=== PATIENT | female | born 1955 | race African-American/Black ===

== ENCOUNTER 2024-12-20 22:03 | Emergency (ER) | payer OTHER, SELFPAY ==
[2024-12-20] VITALS (15 sets, daily range): BP systolic 137; BP diastolic 84; PULSE 106–108; TEMP 36.9; O2SAT 91–99; BMI 28.7
--- NOTE | 2024-12-20 22:54 | ED_ITS ---
HPI HPI - General Adult General Chief complaint: Shortness of Breath/Dyspnea Stated complaint: SOB WEAKNESS Time Seen by Provider: 12/20/24 22:31 Source: patient and family Mode of arrival: Wheelchair History of Present Illness HPI narrative: This 69-year-old female who was diagnosed with hepatocellular carcinoma in 2020 and also gets monthly or bimonthly pleurocentesis at [facility] for right sided pleural effusions and who has been on chemotherapy and recently started immunotherapy but missed the last 3 treatments due to her labs is brought to the emergency department by her son's girlfriend for evaluation of generalized weakness, increasing shortness of breath and pain mostly in her back. She had a CT scan done earlier this month that showed increasing size of the masses in her liver as well as multiple masses in her liver that have been seen in the past and a questionable metastatic nodule in her left lung as well as a large right sided pleural effusion with compressive atelectasis. The patient's son's girlfriend states that she has recently decided to move her in with them because of her generalized weakness and poor appetite. The patient has been having diarrhea which she describes as mucoid in nature. This apparently is not new as I was able to see discussion of this on her MyChart from [facility]. She has not had a fever. She has been using a fentanyl patch and oxycodone that has been prescribed to her on a bimonthly basis but the pain is breaking through at this time. She does remain a full code. She has been worsening over the past 3 days and has been stating that she feels like she is dying. Related Data Home Medications ?Medication ?Instructions ?Recorded ?Confirmed albuterol sulfate 90 mcg/actuation inhalation 12/20/24 aerosol inhaler alprazolam 0.5 mg tablet (Xanax) 0.5 mg PO DAILY 12/20/24 12/20/24 ciprofloxacin 500 mg/5 mL oral 500 mg PO BID 12/20/24 12/20/24 suspension furosemide 40 mg tablet mg 12/20/24 guaifenesin 100 mg/5 mL oral liquid mg 12/20/24 hydroxyzine HCl 25 mg tablet mg 12/20/24 olanzapine 5 mg tablet (Zyprexa) 5 mg PO DAILY 12/20/24 12/20/24 ondansetron 8 mg disintegrating 8 mg PO Q8H 12/20/24 12/20/24 tablet oxycodone 5 mg tablet mg 12/20/24 potassium chloride 20 mEq meq PO 12/20/24 tablet,extended release(part/cryst) sennosides 8.6 mg capsule (senna) 8.6 mg PO BID 12/20/24 12/20/24 spironolactone 100 mg tablet mg 12/20/24 therapeutic multivitamin tab 12/20/24 (Thera-Tabs tablet) Allergies Allergy/AdvReac Type Severity Reaction Status Date / Time acetaminophen Allergy Intermediate Hives Verified 12/20/24 22:27 cyclobenzaprine Allergy Intermediate Swelling Verified 12/20/24 22:27 of Lip/Tongue/Throat gabapentin Allergy Intermediate Hives Verified 12/20/24 22:27 ibuprofen Allergy Intermediate Rash Verified 12/20/24 22:27 iodine Allergy Intermediate Hives Verified 12/20/24 22:27 lidocaine Allergy Intermediate hives Verified 12/20/24 22:27 Penicillins Allergy Intermediate Rash Verified 12/20/24 22:27 rifaximin Allergy Intermediate Swelling Verified 12/20/24 22:27 of Lip/Tongue/Throat tramadol Allergy Intermediate hives Verified 12/20/24 22:27 eggs Allergy Intermediate Hives Uncoded 12/20/24 22:27 Opioid HPI Opioid Management Most Recent Opioid Data: Last Pain Scale 9 12/21/24 00:25 12/21/24 Last DEC Pain Assessment 12/21/24 00:25 Review of Systems ROS Status of ROS 10 or more systems reviewed and unremark able except as noted in history and below PFSH PFSH Social History Little interest or pleasure in doing things: not at all Feeling down, depressed, or hopeless: not at all Exam Narrative Exam Narrative: Vital signs and Nursing Notes reviewed: Patient is afebrile with normal blood pressure, pulse is mildly elevated at 106, she is oxygen dependent and her pulse ox was 97% on 2 L General: Awake, alert, oriented, chronically ill-appearing -[place] female, GCS 15, no respiratory distress HEENT: Normocephalic atraumatic, mucous membranes are moist and pink, eyes are clear, normal conjunctiva, vision is grossly intact, posterior pharynx is normal in appearance. Neck: Supple, +JVD Chest: Diminished breath sounds on the right lung, no rhonchi or rales appreciated, occasional wheeze noted in the left upper lobe CVS: Regular rate and rhythm S1-S2, no murmurs rubs or gallops, pulses are brisk and equal bilaterally ABD: Distended with a fluid wave, nontender Extremities: Moving all extremities, no lower extremity tenderness or swelling noted, negative Homans' sign, pulses are brisk and equal bilaterally Skin: Normal in appearance without rash,pallor, petechiae or purpura Neuro: No focal deficits Constitutional Vital Signs, click to edit/add: Last Vital Signs Temp 98.4 F 12/20/24 22:12 Pulse 112 H 12/21/24 00:10 Resp 18 12/21/24 00:10 BP 137/84 12/20/24 22:14 Pulse Ox 99 12/21/24 00:10 O2 Del Method Nasal Cannula 12/20/24 23:43 O2 Flow Rate 2 12/20/24 23:43 Course Vital Signs Vital signs: Vital Signs Temperature 98.4 F 12/20/24 22:12 Pulse Rate 106 H 12/20/24 22:12 Respiratory Rate 20 12/20/24 22:12 Blood Pressure 137/84 12/20/24 22:12 Pulse Oximetry 97 12/20/24 22:12 Oxygen Delivery Method Nasal Cannula 12/20/24 22:12 Oxygen Delivery Flow Rate 2 12/20/24 22:12 Temperature 98.4 F 12/20/24 22:12 Pulse Rate 112 H 12/21/24 00:10 Respiratory Rate 18 12/21/24 00:10 Blood Pressure 137/84 12/20/24 22:14 Pulse Oximetry 99 12/21/24 00:10 Oxygen Delivery Method Nasal Cannula 12/20/24 23:43 Oxygen Delivery Flow Rate 2 12/20/24 23:43 Medical Decision Making MDM Narrative Medical decision making narrative: This 69-year-old female with a history of stage IV liver cancer and cirrhosis who has right sided pleural effusion that requires pleurocentesis is brought the emergency department by her family for evaluation of abdominal pain and back pain, diarrhea, generalized weakness. She has been staying locally with her son and his girlfriend because she has been declining over the course of the last several days with increased somnolence, complaining of abdominal pain, mucoid diarrhea and stating that she felt like she was dying. I was able to review her CT scan from earlier this month that showed increase in the size of her liver lesions, a nodule on her left lung that was thought to possibly be metastatic disease and large pleural effusion with moderate ascites. I was also able to review the patient's labs from the [facility]. Her WBC count and hemoglobin are stable. Her platelet count is higher today at 73 than it was earlier this month at 66. The patient has a total bilirubin today of 1.3 which is unchanged since December 09. Her AST is 130 today, it was 113 at that time. Her ALT is 163 today it was 113 at that time, alkaline phosphate tase is 118 today it was 107 at that time. Ammonia is 93 today and was 59 at that time. Her electrolytes are otherwise essentially unchanged. Her troponin and EKG today are normal. Urine is negative for infection. X-ray of the chest and abdomen was ordered due to her complaint of shortness of breath. The x-ray shows a large pleural effusion with compressive atelectasis and a nonspecific bowel gas pattern with a moderate amount of stool. She was medicated with 2 doses of Dilaudid for her ongoing pain. She was given 30 mg of lactulose. According to the patient's daughter with whom she has been staying she is supposed to be taking the lactulose on a daily basis but the patient's son and his girlfriend who are currently taking care of her were unaware that she was supposed to be taking this. I had a lengthy discussion with the patient's son and his girlfriend while the patient was getting an x-ray. I explained to them that her diagnosis is somewhat terminal. There is little that can be done for many of the findings on her CAT scan and the treatment is symptomatic. I suggested that they consult palliative care and/or hospice just for a discussion. The patient is still a full code. Family verbalizes understanding that she will not be admitted to this facility at this time. Her daughter intends to call [facility] to get her scheduled to have the pleural effusion tapped at [facility]. She is receiving oxycodone for her pain control which was verified by [facility]. The family had several questions about her ongoing medications. I encouraged them to discuss them with her [facility] providers as I am not in a position to make medication adjustments for her besides suggesting that she take her lactulose twice a day and providing her with a prescription for this. Medical Records Medical records reviewed: Yes I reviewed the patient's medical records Medical records narrative: CT scans and labs from patient's [facility] were reviewed Lab Data Lab results reviewed: Yes I reviewed the patient's lab results Labs: Lab Results 12/20/24 12/21/24 Range/Units 22:40 01:10 WBC 5.0 (4.0-11.0) 10^3/uL RBC 4.01 L (4.20-5.40) 10^6/uL Hgb 12.0 (12.0-16.0) g/dL Hct 37.2 (36.0-48.0) % MCV 92.8 (81.0-99.0) fL MCH 29.9 (26.7-34.0) pg MCHC 32.3 (29.9-35.2) g/dL RDW 15.0 (11.0-15.0) % Plt Count 73 L (150-450) 10^3/uL MPV 10.2 (9.5-13.5) fL Neut % (Auto) 68.3 (43.0-75.0) % Lymph % (Auto) 11.2 L (20.5-60.0) % [place] % (Auto) 15.1 H (1.7-12.0) % Eos % (Auto) 4.8 (0.9-7.0) % Baso % (Auto) 0.2 (0.2-2.0) % Neut # (Auto) 3.4 (1.4-6.5) 10^3/uL Lymph # (Auto) 0.6 L (1.2-3.8) 10^3/uL [place] # (Auto) 0.8 (0.3-0.8) 10^3/uL Eos # (Auto) 0.2 (0.0-0.7) 10^3/uL Baso # (Auto) 0.0 (0.0-0.1) 10^3/uL Abs Immat Gran (auto) 0.02 (0.00-0.03) 10^3/uL Imm/Tot Granulo (auto) 0.4 (0.0-0.5) % Sodium 138 (136-145) mmol/L Potassium 3.4 L (3.5-5.1) mmol/L Chloride 109 H (98-107) mmol/L Carbon Dioxide 25.5 (21.0-32.0) mmol/L Anion Gap 6.9 BUN 6.0 L (7.0-18.0) mg/dL Creatinine 0.79 (0.55-1.02) mg/dL Est GFR ( Amer) >60 (>=60 mL/min/1.73m^2) Est GFR (Non-Af Amer) >60 (>=60 mL/min/1.73m^2) BUN/Creatinine Ratio 7.6 Glucose 96 (74-106) mg/dL Lactate 1.6 (0.4-2.0) mmol/L Calcium 7.6 L (8.5-10.1) mg/dL Total Bilirubin 1.3 H (0.2-1.0) mg/dL AST 130 H (15-37) U/L ALT 163 H (14-59) U/L Alkaline Phosphatase 118 H (46-116) U/L Ammonia 93 H* (11-32) umol/L Troponin I High Sens 6.8 (4.0-51.3) pg/mL NT-Pro-B Natriuret Pep 47.0 (<=900.0) pg/mL Total Protein 6.1 L (6.4-8.2) g/dL Albumin 1.7 L (3.4-5.0) g/dL Globulin 4.4 g/dL Albumin/Globulin Ratio 0.4 Urine Color Dk. yellow (YELLOW) Urine Clarity Clear (CLEAR) Urine pH 6.0 (5.0-9.0) Ur Specific [place] 1.020 (1.005-1.025) Urine Protein Trace (NEG/TRACE) mg/dL Urine Glucose (UA) Negative (NEGATIVE) mg/dL Urine Ketones Trace A (NEGATIVE) mg/dL Urine Occult Blood Negative (NEGATIVE) Urine Nitrite Negative (NEGATIVE) Urine Bilirubin Small A (NEGATIVE) Urine Urobilinogen 1.0 (0.2-1.0) EU/dL Ur Leukocyte Esterase Trace A (NEGATIVE) Urine RBC 0-2 (0-2) #/HPF Urine WBC 0-2 A (NONE SEEN) #/HPF Ur Squamous Epith Cells Rare (NONE/RARE) #/LPF Urine Crystals None seen (None Seen) #/HPF Urine Bacteria None seen (NONE SEEN) #/HPF Urine Casts None seen (NONE SEEN) #/LPF Urine Mucus Small A (NONE SEEN) Ur Culture Indicated? No ECG Data Attestation: I personally reviewed and interpreted this ECG as follows: (Sinus tachycardia at 108 bpm, normal axis, nonspecific ST changes, no acute ST segment elevation or T wave inversion) Discharge Plan Discharge Chief Complaint: Shortness of Breath/Dyspnea Clinical Impression: Hepatocellular carcinoma in adult, Pleural effusion associated with hepatic disorder, Hyperammonemia, Cancer-related breakthrough pain Patient Disposition: Home, Self-Care Prescriptions / Home Meds: No Action oxycodone 5 mg tablet ciprofloxacin 500 mg/5 mL suspension,microcapsule recon 500 mg PO BID spironolactone 100 mg tablet olanzapine [Zyprexa] 5 mg tablet 5 mg PO DAILY senna 8.6 mg capsule 8.6 mg PO BID potassium chloride 20 mEq tablet,ER particles/crystals PO ondansetron 8 mg tablet,disintegrating 8 mg PO Q8H Rx Instructions: 1st dose 1-2 hr before radiation furosemide 40 mg tablet hydroxyzine HCl 25 mg tablet alprazolam [Xanax] 0.5 mg tablet 0.5 mg PO DAILY Thera-Tabs Tablet guaifenesin 100 mg/5 mL liquid albuterol sulfate 90 mcg/actuation HFA aerosol inhaler INHALATION Print Language: Tuvaluan Instructions: Liver Disease Diet (DC), Pleural Effusion (DC), Liver Cancer (DC), Cancer Pain (ED) Referrals: Physician,Non-Staff, MD [Primary Care Provider] - 1 week
[2024-12-20 22:58] LABS: Basophils Percent Auto 0.2 % (0.2-2.0); Eosinophils Absolute Auto 0.2 10^3/uL (0.0-0.7); Eosinophils Percent Auto 4.8 % (0.9-7.0); Hematocrit 37.2 % (36.0-48.0); Immature Granulocytes Abs Auto 0.02 10^3/uL (0.00-0.03); Immature Granulocytes Pct Auto 0.4 % (0.0-0.5); Lymphocytes Absolute Auto 0.6 10^3/uL (1.2-3.8); Lymphocytes Percent Auto 11.2 % (20.5-60.0); Mean Corpuscular HGB Conc 32.3 g/dL (29.9-35.2); Mean Corpuscular Hemoglobin 29.9 pg (26.7-34.0); Mean Corpuscular Volume 92.8 fL (81.0-99.0); Mean Platelet Volume 10.2 fL (9.5-13.5); Monocytes Absolute Auto 0.8 10^3/uL (0.3-0.8); Monocytes Percent Auto 15.1 % (1.7-12.0); Neutrophils Absolute Auto 3.4 10^3/uL (1.4-6.5); Neutrophils Percent Auto 68.3 % (43.0-75.0); Platelet Count 73 10^3/uL (150-450); Red Blood Count 4.01 10^6/uL (4.20-5.40)
--- NOTE | 2024-12-20 22:59 | ECG_ITS ---
[facility] Date: 2024-12-21 Pat Name: DOV GRAY Department: Room: - Gender: Female Operations Professional: : [id number] Requested By: [id number] Order Number: [id number] Reading MD: HAROON APODACA Measurements Intervals [place] Rate: 108 P: 112 [place]: 124 QRS: 104 QRSD: 70 T: 54 QT: 334 QTc: 397 Interpretive Statements 1120 Sinus tachycardia 5120 Possible right ventricular hypertrophy 9140 abnormal rhythm ECG Compared to ECG 05/18/2020 14:52:40 Sinus rhythm no longer present Electronically Signed On 12-21-2024 6:51:46 EST by HAROON APODACA
[2024-12-20] MEDS: ONDANSETRON PF 4 MG/2 ML VIAL IV (23:07)
[2024-12-20] MEDS: HYDROMORPHONE HCL 1 MG/ML CARTRIDGE IV (23:07)
[2024-12-20 23:18] LABS: Lactate/Lactic Acid 1.6 mmol/L (0.4-2.0)
[2024-12-20 23:24] LABS: Alanine Aminotransferase 163 U/L (14-59); Albumin Globulin Ratio 0.4; Albumin Level 1.7 g/dL (3.4-5.0); Alkaline Phosphatase 118 U/L (46-116); Anion Gap 6.9; Aspartate Amino Transferase 130 U/L (15-37); BUN Creatinine Ratio 7.6; Bilirubin Total 1.3 mg/dL (0.2-1.0); Calcium 7.6 mg/dL (8.5-10.1); Carbon Dioxide 25.5 mmol/L (21.0-32.0); Chloride 109 mmol/L (98-107); Estimated GFR (African America >60 (>=60 mL/min/1.73m^2); Estimated GFR (Non-African Ame >60 (>=60 mL/min/1.73m^2); Globulin 4.4 g/dL; Glucose 96 mg/dL (74-106); Potassium 3.4 mmol/L (3.5-5.1); Sodium 138 mmol/L (136-145); Total Protein 6.1 g/dL (6.4-8.2)
[2024-12-20 23:26] LABS: Troponin I High Sensitivity 6.8 pg/mL (4.0-51.3)
[2024-12-20 23:27] LABS: Ammonia 93 umol/L (11-32)
[2024-12-20] MEDS: IPRATROPIUM/ALBUTEROL SULFATE 3 ML AMPUL.NEB IH (23:31)
[2024-12-21 00:05] VITALS: O2SAT 98
[2024-12-21 00:10] VITALS: PULSE 112; O2SAT 99
[2024-12-21] MEDS: HYDROMORPHONE HCL 1 MG/ML CARTRIDGE IV (00:25)
[2024-12-21] MEDS: LACTULOSE 10 GM/15 ML UD CUP 30 GM PO (00:44)
--- NOTE | 2024-12-21 01:10 | PC.NURSE ---
Assisted pt with primary care RN to [facility] to void for specimen. Pt transferred well.
[2024-12-21 01:16] LABS: Bilirubin Urine SMALL (NEGATIVE); Blood Urine NEGATIVE (NEGATIVE); Clarity Urine CLEAR (CLEAR); Color Urine DK. YELLOW (YELLOW); Glucose Urine UA NEGATIVE (NEGATIVE); Ketones Urine TRACE mg/dL (NEGATIVE); Leukocyte Esterase Urine TRACE (NEGATIVE); Nitrite Urine NEGATIVE (NEGATIVE); Protein Urine TRACE mg/dL (NEG/TRACE)
[2024-12-21 01:30] LABS: Bacteria Urine NONE SEEN #/HPF (NONE SEEN); Cast Seen? NONE SEEN #/LPF (NONE SEEN); Crystals Seen? None Seen #/HPF (None Seen); Mucus Urine SMALL (NONE SEEN); RBC Urine 0-2 #/HPF (0-2); Squamous Epithelial Cell Urine RARE #/LPF (NONE/RARE); Urine Culture Indicated NO; WBC Urine 0-2 #/HPF (NONE SEEN)
[2024-12-21] MEDS: HEPARIN SODIUM (PORCINE) PF LOCK FLUSH 500 UNIT/5 ML SYRINGE IV (01:55)
== END 2024-12-21 02:03 | disposition home or self-care (01) ==
PROVIDERS: Emergency Provider Emergency Medicine; PCP Internal Medicine
DX: C22.0 Liver cell carcinoma (principal); R53.1 Weakness; R06.02 Shortness of breath; M54.9 Dorsalgia, unspecified; R10.84 Generalized abdominal pain; J90 Pleural effusion, not elsewhere classified; E72.20 Disorder of urea cycle metabolism, unspecified; G89.3 Neoplasm related pain (acute) (chronic); Z79.899 Other long term (current) drug therapy; K74.60 Unspecified cirrhosis of liver; R40.0 Somnolence; R10.9 Unspecified abdominal pain; R19.7 Diarrhea, unspecified
CPT/HCPCS: 36415; 74022; 80053; 81001; 82140; 83605; 83880; 84484; 85025; 93005; 94640; 96374; 96375; 96376; 99285; J1171; J1642; J2405